=== PATIENT | female | born 1965 | race Caucasian/White ===

== ENCOUNTER → 2016-08-19 | Outpatient (CLI) | payer OTHER ==
[~2016-08-19] MED LIST: BYST5TAB2 PO; COQ-100C5 PO; FLUT1SPR5 EACH NARE; MULTTAB24 PO; OMEG1CAP53 PO; PERC5TAB12 PO; SELE200T8 PO; TIRO137C PO; TURM1CAP6 PO; VITA100036 PO; ZOFR8TAB4 SL
[2016-08-19 13:33] LABS: AUTOMATED NEUTROPHIL # 3.4 TH/MM3 (1.8-7.7); BASOPHIL % 0.5 % (0.0-2.0); EOSINOPHIL # 0.1 TH/MM3 (0-0.4); EOSINOPHIL % 1.8 % (0.0-4.0); HEMATOCRIT 39.5 % (35.0-46.0); HEMO FLAGS DIFF FINAL; LYMPH % 35.5 % (9.0-44.0); LYMPHOCYTE # 2.2 TH/MM3 (1.0-4.8); MEAN CELL VOLUME 93.1 FL (80.0-100.0); MEAN CORPUSCULAR HEMOGLOBIN 30.1 PG (27.0-34.0); MEAN CORPUSCULAR HGB CONC 32.4 % (32.0-36.0); MONO % 7.5 % (0.0-8.0); NEUT % 54.7 % (16.0-70.0); PLATELET COUNT 240 TH/MM3 (150-450); RED BLOOD COUNT 4.24 MIL/MM3 (4.00-5.30); RED CELL DISTRIBUTION WIDTH 12.5 % (11.6-17.2); WHITE BLOOD COUNT 6.3 TH/MM3 (4.0-11.0)
[2016-08-19 14:08] LABS: BLOOD, URINE SMALL (NEG); COMMENT (UR) CULT NOT INDICATED; CULTURE IF INDICATED CULT NOT INDICATED; GLUCOSE,URINE NEG (NEG); KETONE, URINE NEG (NEG); MUCUS URINE FEW /lpf (OCC); NITRITE,URINE NEG (NEG); URINE COLOR LIGHT-YELLOW (YELLW/STRAW)
[2016-08-19 14:43] LABS: BETA HCG QUANT LESS THAN 1 MIU/ML (0-5); FOLLICLE STIMULATING HORMONE 3.3 mIU/mL
--- NOTE | 2016-08-20 08:09 | EKG ---
Date Performed: 08/19/2016 Time Performed: 12:44:39 PTAGE: 51 years EKG: Sinus rhythm NORMAL ECG NO PREVIOUS TRACING DOCTOR: Lee Mccoy Interpretating Date/Time 08/20/2016 08:03:55
== END ==
LOC: CPRE 12:19
PROVIDERS: ATTEND Obstetrics & Gynecology
DX: Z01.812 Encounter for preprocedural laboratory examination (principal); N92.1 Excessive and frequent menstruation with irregular cycle; D25.9 Leiomyoma of uterus, unspecified
CPT/HCPCS: 36415; 81001; 83001; 84443; 84702; 85025; 93005

== ENCOUNTER 2016-08-26 10:25 | Observation (INO) | payer OTHER ==
--- NOTE | 2016-08-25 18:07 | MH ---
cc: CHEN LEMUS DATE OF ADMISSION 08/26/2016 DATE OF 1965 HISTORY OF PRESENT ILLNESS The patient is a 51-year-old white female para 0-0-1-0 with a history of increasing menstrual flow and menstrual pain over the last one year. Her Pap smear on 06/04/16 showed endometrial cells. Biopsy from 08/03/2016 showed benign thickening with fibroids and bilateral ovarian cysts. Endometrial biopsy on 07/07/2016 was benign with only partial tissue. She is now admitted for further treatment. PAST MEDICAL HISTORY Previous surgery: Sinus surgery 2002. MEDICATIONS Vitamins. ALLERGIES None TRANSFUSIONS None. 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 She is . Alcohol occasional. Tobacco none. Drugs none. FAMILY HISTORY Noncontributory. MEDICATIONS Include: 1. Tirosint. 2. Bystolic. 3. Lavaza. 4. Flonase. PHYSICAL EXAMINATION GENERAL: Well-nourished, well-developed white female. VITAL SIGNS: Stable. HEENT: Examination is normal. CHEST: Clear. HEART: Regular rate. BREASTS: Symmetrical. ABDOMEN: Benign. PELVIC: Normal external genitalia and Bartholin's, urethral, [place]'s. Vagina is normal. Cervix is normal. Adnexa nonpalpable. ASSESSMENT As above. PLAN She is now admitted for outpatient hysteroscopy, dilation and curettage, frozen section, laparoscopy, probable LASH procedure with a probable bilateral salpingo-oophorectomy. The patient would like to proceed. MD AUDRA Millan/TUAN /5:41 PM /5:45 PM SWATI
[~2016-08-26] VITALS: Ht 165.1 cm; Wt 74.0 kg
[~2016-08-26 10:25] MED LIST changes: +BUPIVACAINE LIPOSOME PF 1.3% 20 ML VIAL ONE; +DEXAMETHASONE SOD PHOS PF 10 MG/ML VIAL IV ONE; -PERC5TAB12 PO; -ZOFR8TAB4 SL
[2016-08-26 11:13] VITALS: BP 137/74; PULSE 84; RESP 16; TEMP 98.6; O2SAT 100
[2016-08-26] MEDS ORDERED: INSULIN HUMAN REGULAR 1,000 UNITS/10 ML VIAL SQ PRN (11:45)
[2016-08-26] MEDS ORDERED: ceFAZolin 2 GM PREMIX 50 ML IV SCH (11:45)
[2016-08-26] MEDS ORDERED: CHLORHEXIDINE GLUCONATE 2 % 1 PACK (2 CLOTHS) TOPICAL PRN (11:45)
[2016-08-26] MEDS ORDERED: SODIUM CHLORID 0.9% 500 ML IV PRN (11:45)
[2016-08-26] MEDS ORDERED: LACTATED RINGER'S 1000 ML IV PRN (11:45)
[2016-08-26] MEDS ORDERED: POVIDONE IODINE 5% (ANTISEPSIS KIT) 4 APPLICATIONS EACH NARE PRN (11:45)
[2016-08-26] MEDS ORDERED: METOPROLOL TARTRATE 25 MG TAB PO PRN (11:45)
[2016-08-26] MEDS ORDERED: ACETAMINOPHEN 1000 MG/100 ML VIAL IV SCH (11:45)
[2016-08-26] MEDS ORDERED: PROPOFOL 200 MG/20 ML AMP IV ONE (12:00)
[2016-08-26] MEDS ORDERED: ONDANSETRON HCL 4 MG/2 ML VIAL IV PUSH ONE (12:00)
[2016-08-26] MEDS ORDERED: LACTATED RINGER'S 1000 ML INJ 1,000 ML IV ONE (12:00)
[2016-08-26] MEDS ORDERED: ePHEDrine/NS 25 MG/5 ML SYR IV ONE (12:00)
[2016-08-26] MEDS ORDERED: NEOSTIGMINE 3 MG/3 ML SYR IV ONE (12:00)
[2016-08-26] MEDS ORDERED: FAMOTIDINE 20 MG/2 ML VIAL ONE (12:34)
[2016-08-26] MEDS ORDERED: ACETAMINOPHEN 1000 MG/100 ML VIAL IV ONE (12:34)
[2016-08-26] MEDS ORDERED: HYDROmorphone HCL PF 1 MG/ML VIAL IV PRN (14:15)
[2016-08-26] MEDS ORDERED: diphenhydrAMINE HCL 25 MG CAP PO PRN (14:15)
[2016-08-26] MEDS ORDERED: ONDANSETRON ODT 4 MG TAB PO PRN (14:15)
[2016-08-26] MEDS ORDERED: ZOLPIDEM TARTRATE 5 MG TAB PO PRN (14:15)
[2016-08-26] MEDS ORDERED: SODIUM CHLORIDE 0.9% FLUSH 5 ML FLUSH FLUSH PRN (14:15)
[2016-08-26] MEDS ORDERED: PROMETHAZINE INJ 25 MG/ML VIAL IM PRN (14:15)
[2016-08-26] MEDS ORDERED: PROMETHAZINE HCL 25 MG TAB PO PRN (14:15)
[2016-08-26] MEDS ORDERED: ONDANSETRON HCL 4 MG/2 ML VIAL IV PRN (14:15)
[2016-08-26] MEDS ORDERED: DO NOT ADM ANY ANTICOAGULANT DRUGS PRN (14:30)
[2016-08-26] MEDS ORDERED: MIDAZOLAM HCL 2 MG/2 ML VIAL ONE (14:35)
[2016-08-26] MEDS ORDERED: fentaNYL CITRATE 250 MCG/5 ML AMP ONE (14:35)
[2016-08-26 16:00] VITALS: BP 120/71; PULSE 80; RESP 18; TEMP 96.5; O2SAT 100
[2016-08-26] MEDS: KETOROLAC TROMETHAMINE 30 MG/ML (IVP) VIAL IVP SCH ×2 (18:04→22:45)
[2016-08-26] MEDS: DOCUSATE SODIUM 100 MG CAP PO SCH (18:04)
[2016-08-26 19:45] LABS: HEMATOCRIT 36.6 % (35.0-46.0); REVIEW FLAG FINAL
[2016-08-26 20:00] VITALS: BP 125/82; PULSE 89; RESP 17; TEMP 97.6; O2SAT 95
[2016-08-26] MEDS: FLUTICASONE PROPIONATE 50 MCG/ACT 16 GM NASAL SPRAY NASAL SCH (20:22)
[2016-08-26] MEDS: SODIUM CHLORIDE 0.9% FLUSH 5 ML FLUSH FLUSH SCH (20:24)
[2016-08-26] MEDS: ACETAMINOPHEN 1000 MG/100 ML VIAL IV SCH (20:24)
[2016-08-26] MEDS: D5-1/2 NS + KCL 20 MEQ INJ 1,000 ML IV SCH (22:45)
[2016-08-27] VITALS: BP 107/64; PULSE 62; RESP 18; TEMP 98.3; O2SAT 98
[2016-08-27 04:00] VITALS: BP 114/73; PULSE 80; RESP 17; TEMP 97.5; O2SAT 97
[2016-08-27] MEDS: ACETAMINOPHEN 1000 MG/100 ML VIAL IV SCH (04:42)
[2016-08-27] MEDS: KETOROLAC TROMETHAMINE 30 MG/ML (IVP) VIAL IVP SCH ×2 (04:42→10:00)
[2016-08-27] MEDS: DOCUSATE SODIUM 100 MG CAP PO SCH (04:42)
[2016-08-27] MEDS ORDERED: LEVOTHYROXINE SODIUM 25 MCG TAB PO SCH (06:00)
[2016-08-27] MEDS ORDERED: LEVOTHYROXINE SODIUM 112 MCG TAB PO SCH (06:00)
[2016-08-27 06:34] LABS: AUTOMATED NEUTROPHIL # 10.8 TH/MM3 (1.8-7.7); BASOPHIL % 0.1 % (0.0-2.0); HEMATOCRIT 34.5 % (35.0-46.0); HEMO FLAGS DIFF FINAL; LYMPH % 8.9 % (9.0-44.0); LYMPHOCYTE # 1.1 TH/MM3 (1.0-4.8); MEAN CELL VOLUME 92.8 FL (80.0-100.0); MEAN CORPUSCULAR HEMOGLOBIN 29.8 PG (27.0-34.0); MEAN CORPUSCULAR HGB CONC 32.2 % (32.0-36.0); MONO % 5.1 % (0.0-8.0); NEUT % 85.9 % (16.0-70.0); PLATELET COUNT 264 TH/MM3 (150-450); RED BLOOD COUNT 3.72 MIL/MM3 (4.00-5.30); RED CELL DISTRIBUTION WIDTH 12.7 % (11.6-17.2); WHITE BLOOD COUNT 12.6 TH/MM3 (4.0-11.0)
[2016-08-27 06:45] LABS: BICARBONATE 24.4 MEQ/L (21.0-32.0); POTASSIUM 4.3 MEQ/L (3.5-5.1)
--- NOTE | 2016-08-27 07:13 | MP ---
cc: CHEN LEMUS DATE OF SURGERY 08/26/2016 PREOPERATIVE DIAGNOSES Menorrhagia, dysmenorrhea. Fibroids. POSTOPERATIVE DIAGNOSES Menorrhagia, dysmenorrhea. Fibroids. PROCEDURE D&C, frozen, followed by a LASH/BSO. ANESTHESIA General ET. SURGEON Chen Lemus MD OPTICAL ELEMENT COATER KORY Varner ESTIMATED BLOOD LOSS FOR THE PROCEDURE Less than 25 cc FLUIDS 1 liter crystalloid. OBJECTIVE FINDINGS Following the induction of adequate general endotracheal anesthesia, the patient was prepped and draped supine on the operating table in the dorsal lithotomy position in sterile fashion with the bladder being drained by Shaw catheterization. Examination under anesthesia revealed a 12 weeks' sized anterior uterus. The adnexa were nonpalpable. A heavy weighted speculum was placed in the posterior fornix of the vagina, the anterior lip of the cervix grasped with a single-tooth tenaculum. The cervix and uterus sounded to 9 cm. The cervix was then dilated to a #18 Hanks dilator. Endocervical curettings were obtained for permanent study, the endometrium with a small sharp curette for frozen section. The vaginal instruments were removed, the nailing machine operator's gloves were changed. The abdomen was opened through a 3-cm curving infraumbilical incision using a knife to cut down through the skin to the fascia. The fascia was opened transversely, stripped from the muscle. The rectus muscle was split in the midline and the peritoneum opened sharply without incident. Digital palpation was normal. A medium GelPort was placed, the laparoscope inserted, a 5 port was placed in the right lower quadrant and an accessory port in the left lower quadrant. Pelvic contents revealed the uterus to be about 12 weeks' size with fibroids; normal tubes, normal ovaries, normal cul-de-sacs. The liver edge was normal. Working first on the left, harmonic scalpel was used to take the left ovarian vessels, left round ligament, left broad ligament and left side of the bladder flap and the uterine vessels. Same was done on the right. The harmonic scalpel was now used to amputate the fundus from the cervix. Returned benign endometrium. The uterus, tubes and ovaries were placed in the pouch and extracted intact through the GelPort site. Irrigation was performed. No bleeding was evident. Low-pressure test revealed no bleeding. The ureters were inspected with good peristalsis bilaterally. The operative site was coated with Evicel, the GelPort removed, the peritoneum sutured with a running 2-0 Vicryl, the fascia with a running locking stitch of 0 Vicryl from each corner to the midline and tied; the subcu sutured with running 3-0 Vicryl and the skin with a running subcuticular 3-0 Monocryl. The scope was now reinserted through the small ports and used to observe the GelPort site which was well closed; no entrapment, no bleeding. The pelvis showed no bleeding. The scope was removed, the gas allowed to escape. The small ports were removed, sutured with 4-0 Monocryl. Dermabond applied. All counts were correct and the patient was awakened and taken to the recovery room in good condition. MD AUDRA Millan/SSB /2:18 PM /6:58 AM
[2016-08-27 08:00] VITALS: BP 120/69; PULSE 54; RESP 18; TEMP 97.7; O2SAT 98
[2016-08-27] MEDS: D5-1/2 NS + KCL 20 MEQ INJ 1,000 ML IV SCH (08:00)
[2016-08-27] MEDS: SODIUM CHLORIDE 0.9% FLUSH 5 ML FLUSH FLUSH SCH (09:00)
[2016-08-27] MEDS ORDERED: NEBIVOLOL 5 MG TAB PO SCH (09:00)
[2016-08-27] MEDS: FLUTICASONE PROPIONATE 50 MCG/ACT 16 GM NASAL SPRAY NASAL SCH (10:00)
[2016-08-27] MEDS ORDERED: ZOFR8TAB4 SL (11:02)
[2016-08-27] MEDS ORDERED: PERC5TAB12 PO (11:02)
== END 2016-08-27 11:18 | disposition home or self-care (01) ==
LOC: HSDC 10:25 → HOCA 16:05
PROVIDERS: ADMIT Obstetrics & Gynecology; ATTEND Obstetrics & Gynecology
PROC: 0UT74ZZ Resection of Bilateral Fallopian Tubes, Percutaneous Endoscopic Approach (ICD-10-PCS; 2016-08-26)
PROC: 0UT94ZZ Resection of Uterus, Percutaneous Endoscopic Approach (ICD-10-PCS; principal; 2016-08-26 12:41)
PROC: 0UT24ZZ Resection of Bilateral Ovaries, Percutaneous Endoscopic Approach (ICD-10-PCS; 2016-08-26 12:41)
DX: D25.9 Leiomyoma of uterus, unspecified (principal); I10 Essential (primary) hypertension; E03.9 Hypothyroidism, unspecified; Z79.899 Other long term (current) drug therapy
CPT/HCPCS: 00840; 58542; 80048; 85014; 85018; 85025; 86850; 86900; 86901; 88305; 88307; 88331; 94150; C9290; G0378; J0131; J0690; J1100; J1885; J2250; J2405; J2710; J3010; J3480; J7120